=== PATIENT | male | born 1990 | race Caucasian/White ===

== ENCOUNTER 2017-10-13 18:53 | Emergency (ER) | payer OTHER ==
[2017-10-13] MEDS ORDERED: LIDOCAINE 1% INJ-PF (10 MG/ML) 30 ML SDV INJ ONE (19:31)
--- NOTE | 2017-10-13 19:36 | ER Document Report ---
ED Wound - General Chief Complaint: Laceration Stated Complaint: LACERATION TO RIGHT THUMB Time Seen by Provider: 10/13/17 19:09 Mode of Arrival: Ambulatory Information source: Patient TRAVEL OUTSIDE OF THE [place] IN LAST 30 DAYS: No - HPI Patient complains to provider of: Laceration Notes: Patient is here with complaints of laceration to the right thumb. The patient states that he was cutting wood with a circular saw and the saw kicked back and hit his right thumb. The patient is right-handed. He was using his left hand to cut the wood. He has a laceration at the base of his right thumb. He does complain of some tingling and numbness to the end of his thumb, but states this is chronic from prior injury. He denies any decreased range of motion. He denies any foreign bodies. Is not on blood thinners. His tetanus is up-to- date. He denies any other injuries or any other complaints. Bleeding is controlled with pressure. - Related Data Allergies/Adverse Reactions: No Known Allergies Allergy (Verified 10/13/17 18:54) Past Medical History - Social History Smoking Status: Current Every Day Smoker Frequency of alcohol use: Occasional Drug Abuse: Marijuana Family History: Reviewed & Not Pertinent Patient has suicidal ideation: No Patient has homicidal ideation: No Renal/ Medical History: Denies: Hx Peritoneal Dialysis - Immunizations Hx Diphtheria, Pertussis, Tetanus Vaccination: Yes Review of Systems - Review of Systems -: Yes All other systems reviewed and negative Physical Exam - Vital signs Vitals: Temp Pulse Resp BP Pulse Ox 98.7 F 63 18 132/84 H 97 10/13/17 19:11 10/13/17 19:11 10/13/17 19:11 10/13/17 19:11 10/13/17 19:11 - Notes Notes: GENERAL: alert, cooperative, nontoxic, no distress. HEAD: normocephalic, atraumatic EYES: conjunctiva pink without discharge, no external redness or swelling. EARS: no external swelling, no external redness NOSE: atraumatic, no external swelling MOUTH/THROAT: mucous membranes moist and pink NECK: soft, supple, full range of motion, no meningismus. CHEST: no distress, lungs clear and equal throughout. No wheezing, rales, rhonchi. CARDIAC: regular rate and rhythm, no murmur, normal capillary refill, normal pulses. BACK: full range of motion, no CVA tenderness. EXTREMITIES: full range of motion of all extremities. 3 cm jagged laceration at the base of the right thumb. There is some bleeding noted with a small vessel bleeding. No foreign body. Full flexion and extension of the thumb with no tendon laceration identified. Normal cap refill distally. NEURO: alert and oriented 3, no focal deficits, full range of motion of all extremities. PYSCH: appropriate mood, affect. Patient is cooperative. SKIN: pink, warm, dry, no rash. Course - Re-evaluation Re-evalutation: 10/13/17 20:40 Patient is nontoxic appearing with stable vitals. The patient is here with complaints of laceration to the right thumb from a circular saw. Patient is noted to have 3 cm jagged laceration at the base of his thumb. No foreign body , no extensor tendon laceration. Tetanus is up-to-date. Patient had an x-ray showing no acute fracture or foreign body. The wound was cleaned and copiously irrigated. Moderate debridement. Multiple flaps were aligned with 14 sutures to close the wound. Sterile dressing was applied. The patient will be discharged home with a prescription for Keflex, [place], instructions to follow- up with Dr. Pierre at the next available appointment for wound recheck. Follow -up sooner for worsening pain, fever, redness, and drainage, numbness, tingling , weakness, any further concerns. The patient's emergency department workup and current diagnosis were explained to the patient and or family. Follow-up instructions were provided. Medications if prescribed were discussed. Instructions for when to return to the emergency department including specific worrisome symptoms were discussed with the patient and/or family. The patient is noted to have elevated blood pressure during today's emergency department visit. The patient was informed of this finding. The patient was instructed that this may be related to pre-hypertension and requires further evaluation with a primary care provider. The patient has no hypertensive symptoms at this time. - Vital Signs Vital signs: Temp Pulse Resp BP Pulse Ox 98.7 F 63 18 132/84 H 97 10/13/17 19:11 10/13/17 19:11 10/13/17 19:11 10/13/17 19:11 10/13/17 19:11 - Diagnostic Test Radiology reviewed: Image reviewed, Reports reviewed - Right hand negative Procedures - Laceration/Wound Repair Right thumb Wound length (cm): 3 Wound's Depth, Shape: Superficial, Irregular, Stellate, Contused tissue Laceration pre-procedure: Sterile PPE donned, Sterile drapes applied, Shur- Clens applied Anesthetic type: 1% Lidocaine Wound explored: Clean, No foreign body removed Irrigated w/ Saline (mLs): 100 Wound Debrided: Moderate Wound Repaired With: Sutures Suture Size/Type: 5:0, Ethilon Number of Sutures: 14 Post-procedure wound care: Sterile dressing applied Post-procedure NV exam normal: Yes Complications: No Discharge - Discharge Clinical Impression: Laceration of right thumb Qualifiers: Encounter type: initial encounter Damage to nail status: without damage Foreign body presence: without foreign body Qualified Code(s): S61.011A - Laceration without foreign body of right thumb without damage to nail, initial encounter Condition: Stable Disposition: HOME, SELF-CARE Instructions: Laceration Care ([facility]), Prophylactic Antibiotic ([facility]), Soap Cleansing ([facility]), Oral Narcotic Medication ([facility]), Antibiotic Ointment Protection ([facility]) Additional Instructions: Take medications as prescribed. Clean wound twice a day with soap and water. If the wound has a scab on it, use half-strength peroxide to remove the scab. Do not use peroxide otherwise. Keep wound clean and dry. Follow-up with Dr. Pierre at the next available appointment for wound recheck. Follow-up sooner for increasing pain, fever, redness, drainage, numbness, tingling, weakness, any further concerns. Your blood pressure was elevated during today's visit. Have this rechecked with your doctor. The medication you were prescribed today may cause drowsiness. Do not drive or operate heavy machinery while taking this medication. Prescriptions: Cephalexin Monohydrate [Keflex 500 mg Capsule] 500 mg PO Q6H 5 Days capsule Hydrocodone/Acetaminophen [[place] 5-325 mg Tablet] 2 tab PO Q6H PRN #10 tab PRN Reason: Forms: Elevated Blood Pressure, Smoking Cessation Education Referrals: ROYAL PIERRE DO [ACTIVE STAFF] - Follow up as needed
--- NOTE | 2017-10-13 19:47 | RADIOLOGY REPORT (SQ) ---
EXAM DESCRIPTION: HAND RIGHT 3 VIEWS COMPLETED DATE/TIME: 10/13/2017 7:29 pm REASON FOR STUDY: laceration from saw COMPARISON: None. EXAM PARAMETERS: NUMBER OF VIEWS: Three views. TECHNIQUE: AP, lateral and oblique radiographic images acquired of the right hand. LIMITATIONS: None. FINDINGS: MINERALIZATION: Normal. BONES: No acute fracture or dislocation. No worrisome bone lesions. JOINTS: No effusions. SOFT TISSUES: No soft tissue swelling. No foreign body. OTHER: No other significant finding. IMPRESSION: NEGATIVE STUDY OF THE RIGHT HAND. NO RADIOGRAPHIC EVIDENCE OF ACUTE INJURY. TECHNICAL DOCUMENTATION: JOB ID: [id number] [employer]- All Rights Reserved Reading location - IP/workstation name: [email or web address]
[2017-10-13 20:51] VITALS: BP 122/77
== END 2017-10-13 20:51 | disposition home or self-care (01) ==
LOC: ER 18:53
PROC: 0HQFXZZ Repair Right Hand Skin, External Approach (ICD-10-PCS; principal; 2017-10-13)
DX: S61.011A Laceration without foreign body of right thumb without damage to nail, initial encounter (principal); R20.0 Anesthesia of skin; W29.8XXA Contact with other powered hand tools and household machinery, initial encounter; F17.200 Nicotine dependence, unspecified, uncomplicated
CPT/HCPCS: 99283